=== PATIENT | male | born 1980 ===

== ENCOUNTER 2024-07-13 08:06 | Emergency (ER) | payer OTHER, SELFPAY ==
[2024-07-13 08:13] VITALS: BP 164/103
--- NOTE | 2024-07-13 08:25 | ED.GENMED ---
History of Present Illness
General
Chief Complaint: Back Pain
Source: patient
Exam Limitations: none
Time Seen by Provider: 07/13/24 08:17
History of Present Illness
History of Present Illness:
See MDM
Past History
Past History
ED Past Medical History: None
ED Past Surgical History: None
Social History
Tobacco: Non-smoker
Alcohol: None
Phy Exam
Physical Exam
Physical Exam:
See MDM
Course
Orders/Labs/Results
Orders:
Orders
07/13/24 08:24
HYDROmorphone [Dilaudid] 1 mg IM NOW STA
Ketorolac [Toradol] 30 mg IM NOW STA
Prednisone [Deltasone] 50 mg PO NOW STA
Lumbar Spine Complete, 4 View [CR Lumbar Spine Comp Min 4 Vw*] Urgent
Comment:
Reason For Exam: back pain radiating to left leg
07/13/24 10:47
Oxycodone/Acetaminophen [Percocet 5/325] 1 tablet PO NOW STA
Vital Signs
Initial and Last Documented VS:
Initial Vital Signs
Temp Pulse Resp BP Pulse Ox
97.7 F 99 16 164/103 99
07/13/24 08:13 07/13/24 08:13 07/13/24 08:13 07/13/24 08:13 07/13/24 08:13
Last Documented Vital Signs
Temp Pulse Resp BP Pulse Ox
97.7 F 99 16 164/103 99
07/13/24 08:13 07/13/24 08:13 07/13/24 08:13 07/13/24 08:13 07/13/24 08:13
MDM/Problems Addressed
Differential Diagnosis Includes:
HPI and MDM Narrative:
44-year-old male presenting for evaluation of left-sided back pain. He has had a history of back pain in the past but it was more related to a spasm which improved with spasm medicine. Symptoms started over a week ago and now going down his left
thigh. He denies any trauma. Spasm medicine is not helping this time. Patient denies any numbness but complains of mild tingling to his left lateral thigh. He denies any weakness. He denies any bowel or bladder issues
On exam, he is uncomfortable. He has no midline lumbar tenderness or paralumbar tenderness. His left leg is neurovascularly intact. Discussed likely sciatic pain. Will give dose of Dilaudid, Toradol and will start prednisone
Physical exam
General: Uncomfortable
HEENT: protecting airway
Neck: appears supple
CV: No evidence of cyanosis
Resp: No accessory muscle use
Abd: Non-distended
Back: No reproducible tenderness
Extremities: No deformities. Sensation grossly intact to left leg. Extremity neurovascularly intact
Neuro: alert
Psych: Normal affect
Skin: Intact
Problems Addressed including Acute and Chronic Conditions affecting care:
1. Sciatic pain
Acuity: acute
Prognosis: stable
Details: Will start pain control and will obtain x-ray. Steroids started
X-ray negative. Patient feeling somewhat better and feels comfortable going home
Updates
Differential Diagnosis (but not limited to): Sciatic pain, muscle spasm, kidney stone
Testing considered: CT abdomen/pelvis
Drug therapy (if applicable): OTC meds, please see d/c instruction regarding Rx drugs
Amount and/or Complexity of Data Reviewed
Clinical info obtained from: Patient
External data reviewed: N/A
Labs I independently reviewed (but not limited to): N/A
Radiology: X-ray independently reviewed: Lumbar x-ray negative
Pulse Ox: not hypoxic
EKG independently reviewed: N/A
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
Critical Care: N/A
Risk of Complication:
Social Determinants of health: Good social support
Discussed with other providers: N/A
Escalation of Care includes Admit/Obs: After being observed in the Emergency Department, pt stable for discharge.
Occasional wrong word or 'sound a like' substitutions may have occurred due to the inherent limitations of voice recognition software. Read the chart carefully and recognize, using context, where substitutions have occurred.
*Critical Care Note
Total Time (30-74mins, 75-104mins- exclusive of procedures): Not Applicable
ED Attending Note
-
Portions of this chart may have been created with voice recognition software.� Occasional wrong word or��sound alike� substitutions may have occurred due to the inherent limitations of voice recognition software.
Discharge Plan
Departure
Patient Disposition: Home (Routine Discharge)
Date of Disposition: 07/13/24
Time of Disposition: 10:47
Patient with high blood pressure during this ER visit?: Yes
Discharge Problem:
Sciatica
Instructions: Sciatica (DC)
Prescriptions:
New
prednisone 20 mg tablet
40 mg PO DAILY Qty: 10 0RF
diclofenac potassium 50 mg tablet
50 mg PO BID Qty: 20 0RF
oxycodone 5 mg tablet
5 mg PO Q8H PRN (Reason: Pain) Qty: 14 0RF
Referrals:
Sam Manzanares I., DO [Family Provider] -
Activity Restrictions/Additional Instructions:
Please return for any worsening symptoms.
You may return at any time if you have further concerns.
Please follow up with your doctor at the first available appointment, preferably this week. Please talk to your doctor about obtaining an MRI.
Thank you for choosing [facility].
Interventions
Interventions:
*Risk Screen - Suicide Last Done: 07/13/24 08:13
*General Assessment Last Done: 07/13/24 08:13
*Neglect/Abuse Screening Last Done: 07/13/24 09:52
*ED COVID-19 Vaccine History Last Done: 07/13/24 08:13
ED-Musculoskeletal Assessment Last Done: 07/13/24 09:51
Discharge Date and Time
Print Language: [id number]
[2024-07-13] MEDS: DELTASONE 50 MG PO (08:43)
[2024-07-13] MEDS: DILAUDID 1 MG IM (08:47)
[2024-07-13] MEDS: TORADOL 30 MG IM (08:48)
[2024-07-13] MEDS: PERCOCET 5/325 1 TABLET PO (11:09)
== END 2024-07-13 11:34 | disposition home or self-care (01) ==
LOC: EMR 08:06
PROVIDERS: EMERGENCY PHYSICIAN Student in an Organized Health Care Education/Training Program; FAMILY PHYSICIAN Internal Medicine
DX: M54.32 Sciatica, left side (principal); M79.605 Pain in left leg; R03.0 Elevated blood-pressure reading, without diagnosis of hypertension
CPT/HCPCS: 99284; 96372 ×2; 72110

== ENCOUNTER 2024-12-30 06:19 | Day surgery (SDC) | payer OTHER, SELFPAY | END 2024-12-30 14:59 | disposition home or self-care (01) | LOC: GI 06:19 | PROVIDERS: ATTENDING PHYSICIAN Internal Medicine Gastroenterology | DX: Z12.11 Encounter for screening for malignant neoplasm of colon (principal); D12.4 Benign neoplasm of descending colon; K57.30 Diverticulosis of large intestine without perforation or abscess without bleeding; K64.8 Other hemorrhoids; Z83.719 Family history of colon polyps, unspecified | CPT/HCPCS: 45385; 88305 ==